=== PATIENT | female | born 1965 | race Two or more races ===

== ENCOUNTER 2018-11-02 12:59 | Outpatient (CLI) | payer MEDICAID ==
[2018-11-01 13:00] VITALS: BP 146/89
[~2018-11-02] VITALS: Ht 160 cm; Wt 74.8 kg
[2018-11-02] MEDS ORDERED: ALBUTEROL SULF8.5 GM INH (15:45)
--- NOTE | 2018-11-02 23:00 | Consultation ---
DATE OF CONSULTATION: 11/02/2018 CONSULTING PHYSICIAN: Eduardo Madison M.D. CHIEF COMPLAINT: Gastric polyps. HISTORY OF PRESENT ILLNESS: This is a very pleasant 53-year-old female who had endoscopy and colonoscopy who was referred to us for evaluation of gastric lesion, questionable gastric polyp. Unfortunately, I do not have the endoscopy report. PAST MEDICAL HISTORY: Asthma. PAST SURGICAL HISTORY: Colonic infection requiring surgery. MEDICATIONS: Please see medication reconciliation list. FAMILY HISTORY: No family history of GI malignancies. SOCIAL HISTORY: The patient denies any tobacco, alcohol, or drug abuse. ALLERGIES: No known drug allergy. PHYSICAL EXAMINATION: VITAL SIGNS: Temperature 98.3, blood pressure is 146/89, pulse 75, and respirations 20. HEENT: Normocephalic and atraumatic. Sclerae anicteric. NECK: Supple. No evidence of lymphadenopathy. CARDIOVASCULAR: Regular rate and rhythm. Plus S1 and S2. No obvious murmur. LUNGS: Clear to auscultation bilaterally. ABDOMEN: Positive bowel sounds. Soft and nontender. No rebound. No guarding. No peritoneal sign. EXTREMITIES: No cyanosis, no clubbing, no edema. ASSESSMENT AND PLAN: The patient is a 53-year-old female with gastric submucosal lesion. Needs endoscopic ultrasound. We will send authorization for the insurance and we will schedule as soon as it is obtained. The patient was informed of the risks and benefits of procedure and we will plan to schedule after authorization is obtained. Eduardo Madison M.D. DR: KELL JOB#: [id number] CC:
== END 2018-11-02 15:44 | disposition home or self-care (01) ==
LOC: PAN 12:59
DX: K31.7 Polyp of stomach and duodenum (principal)
CPT/HCPCS: 99202

== ENCOUNTER 2018-12-25 12:49 | Outpatient (CLI) | payer MEDICAID ==
[~2018-12-25 12:49] MED LIST: ALBUTEROL SULF8.5 GM INH
--- NOTE | 2018-12-25 13:43 | General Progress Note ---
Assessment/Plan Problem List: (1) esophageal sub mucosal lesion Assessment/Plan: plan repeat eus in one year Subjective ROS Limited/Unobtainable: Yes Allergies: Coded Allergies: No Known Allergies (Unverified , 11/02/18) Objective General Appearance: alert EENT: normal ENT inspection Neck: supple Cardiovascular: normal rate Respiratory/Chest: decreased breath sounds Abdomen: normal bowel sounds, non tender, soft Extremities: non-tender Eduardo Madison MD Dec 25, 2018 13:42
== END 2018-12-25 15:00 | disposition home or self-care (01) ==
LOC: PAN 12:49
DX: K22.8 Other specified diseases of esophagus (principal)
CPT/HCPCS: 99202